=== PATIENT | male | born 1980 | race Caucasian/White ===

== ENCOUNTER 2019-05-25 05:55 | Day surgery (SDC) | payer BC ==
[2019-05-24 12:11] VITALS: BMI 36.9
[2019-05-25] MEDS ORDERED: Fentanyl 100 MCG/2 ML VIAL ONE (06:31)
[2019-05-25] MEDS ORDERED: ceFAZolin Sodium (SDC) 2 GM/100 ML BAG ONE (06:35)
[2019-05-25 06:40] LABS: #Basophils 0.1 thou/uL (0.0-0.2); #Eosinphils 0.3 thou/uL (0.0-0.7); #Lymphocytes 2.5 thou/uL (1.20-3.40); #Monocytes 0.6 thou/uL (0.11-0.59); #Neutrophils 3.2 thou/uL (1.40-6.50); %Basophils 0.9 % (0.0-1.0); %Eosinophils 4.5 % (0.0-10.0); %Lymphocytes 37.6 % (21.0-51.0); %Monocytes 9.1 % (0.0-10.0); %Neutrophils 47.9 % (42.0-75.0); Mean Corpuscular HGB CONC 33.8 g/dL (32.0-36.0); Mean Corpuscular Hemoglobin 30.8 pg (27.0-31.0); Mean Platelet Volume 8.5 fL (7.4-10.4); Platelet Count 205 thou/uL (130-400); RBC Distribution Width 11.9 % (11.5-14.5); Red Blood Cell (RBC) Count 4.87 mill/uL (4.70-6.10); White Blood Cell (WBC) Count 6.6 thou/uL (4.8-10.8)
[2019-05-25] MEDS ORDERED: Lidocaine 2% PF 5 ML VIAL ONE (07:03)
[2019-05-25] MEDS ORDERED: Bacitracin Zinc Ointment 30 gm TUBE ONE (07:03)
[2019-05-25] MEDS ORDERED: Bupivacaine/Epinephrine 0.25% 30 ML VIAL ONE (07:03)
[2019-05-25] MEDS ORDERED: Midazolam HCl 2 mg/2 ml Vial ONE (07:16)
[2019-05-25 07:45] LABS: Anion Gap 11 mmol/L (10-20); BUN (Urea Nitrogen) 16 mg/dL (8.9-20.6); Calc. Creatinine Clearance 224 mL/min (70-130); Calcium 9.1 mg/dL (7.8-10.44); Carbon Dioxide 25 mmol/L (22-29); Chloride 107 mmol/L (98-107); Estimated GFR-MDRD Greater than 90; Glucose 93 mg/dL (70-105); Potassium 4.1 mmol/L (3.5-5.1); Sodium 139 mmol/L (136-145)
[2019-05-25] MEDS ORDERED: Ondansetron PF 4 MG/2 ML Vial ONE (17:10)
[2019-05-25] MEDS ORDERED: PROPOFOL 200 MG/20 ML VIAL ONE (17:10)
[2019-05-25] MEDS ORDERED: Rocuronium Bromide 10 MG/ML (10ML VIAL) ONE (17:10)
[2019-05-25] MEDS ORDERED: Ketorolac Tromethamine 30 MG/ML VIAL ONE (17:10)
[2019-05-25] MEDS ORDERED: Dexamethasone 20 MG/5 ML VIAL ONE (17:10)
--- NOTE | 2019-05-31 19:34 | PDOC.OP ---
Operative Note - Operative Note Operative Note: PROCEDURE: Excision of right shoulder skin cyst and pilonidal cyst SURGEON: Jesse Leahy M.D. DATE: 05/25/2019 PREOPERATIVE DIAGNOSIS: Pilonidal cyst and right shoulder skin cyst POSTOPERATIVE DIAGNOSIS: Pilonidal cyst and right shoulder skin cyst HISTORY: Patient with history of intermittent swelling and drainage near the upper gluteal cleft with a palpable cystic mass but no external opening, felt to most consistent with a pilonidal cyst. He also has a slowly enlarging subcutaneous mass in the right shoulder felt to be consistent with a skin cyst. He presents for excision of both for diagnostic and symptomatic purposes. PROCEDURE IN DETAIL: After informed consent was obtained and appropriate preoperative antibiotics administered the patient was taken to the operating room where he was placed in supine position and general anesthesia was administered he was then moved to the prone position with appropriate padding and support of the extremities and prepped and draped in standard sterile fashion. Local anesthesia was infused the skin and subcutaneous tissues surrounding the right shoulder cyst. No elliptical incision was made incorporating the external punctum and the cyst was excised in its entirety and sent to pathology. The wound was irrigated and hemostasis obtained using Bovie electrocautery. The subcutaneous tissues were reapproximated with 3-0 Monocryl suture and the skin was closed with 4-0 Monocryl suture. Attention was then turned to the pilonidal cysts. Local anesthesia was infused circumferentially for a field block and a vertical elliptical incision made overlying the palpable cystic mass. 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 This was sent to pathology in its entirety and the wound irrigated and examined. No residual cyst wall was identified. Additional local anesthesia was infused for postoperative pain control and the skin and subcutaneous tissues were closed in multiple layers using Vicryl suture in the subcutaneous tissues and a running 4-0 subcuticular Monocryl suture in the skin. Dermabond dressings were placed and the patient was extubated and taken to recovery in good condition. Estimated blood loss is minimal. There were no complications. Specimen is right shoulder skin cyst and pilonidal cyst.
--- NOTE | 2019-06-05 05:51 | PQF ---
[facility] POST DISCHARGE CLINICAL DOCUMENTATION IMPROVEMENT CLARIFICATION FORM l Todays Date: 06/04/19 l Patients Name KIM ANTONIO l l Admit Date 05/25/19 l Disch Date 05/25/19 Psychology Instructor Name Thaddeus Wilson Jr. Email: Cell: [phone] To be completed by Psychology Instructor: Present Clinical Indicators - Signs / Symptoms Results and Location in Medical Record [ ] Documentation of: [ ] [ ] Documentation of: [ ] [ ] Documentation of: [ ] [ ] Documentation of: [ ] [ ] Risks [ ] [ ] [ ] Treatment [ ] Excision of right shoulder cyst and pilonidal cyst Query for size and margin of shoulder cyst and pilonidal cyst [ ] [ ] To be completed by Physician: LUKASZ BENAVIDEZ The documentation in this patients record requires clarification to ensure coding compliance and accuracy. Check the appropriate box and include in your discharge summary. [ ] [ ] [ ] [ ] Please check this box if this does not apply to this patient [ ] Unable to determine [ ] Other diagnosis: Review the following information and exercise your independent professional judgment in responding to the clarification. Based upon the clinical findings, risk factors, and treatment, please clarify if you are treating one of the above probable or suspected diagnoses. Physician Signature: Date Time MTDD
== END 2019-05-25 11:26 | disposition home or self-care (01) ==
LOC: SDC 05:55
PROVIDERS: ATTEND Surgery
PROC: 0JB90ZZ Excision of Buttock Subcutaneous Tissue and Fascia, Open Approach (ICD-10-PCS; principal; 2019-05-25)
DX: L05.91 Pilonidal cyst without abscess (principal); L57.8 Other skin changes due to chronic exposure to nonionizing radiation; F10.11 Alcohol abuse, in remission; F32.9 Major depressive disorder, single episode, unspecified; E66.9 Obesity, unspecified; Z68.36 Body mass index [BMI] 36.0-36.9, adult; Z87.891 Personal history of nicotine dependence
CPT/HCPCS: 36415; 80048; 85025; 88304; 88305; J0131; J0690; J1100; J1885; J2001; J2250; J2405; J2704; J3010